=== PATIENT | female | born 1945 | race Asian ===

== ENCOUNTER 2017-06-11 13:49 | Outpatient (CLI) | payer MEDICARE ==
--- NOTE | 2017-06-11 15:37 | Mammography Report ---
BILATERAL MAMMOGRAM: FINDINGS: The breast tissue is heterogeneously dense, which could obscure detection of small masses (approximately 50%-75% glandular). No mass, distortion, suspicious calcification, or skin change is seen. There is no significant change when compared to prior exam in February 2016. CAD was utilized. IMPRESSION: Negative mammogram. There is no mammographic evidence of malignancy. RECOMMENDATION: Follow-up per ACS guidelines. BI-RADS CATEGORY: 1 = Negative ACR BI-RADS MAMMOGRAPHIC CODES: 0 = Needs additional imaging evaluation; 1 = Negative; 2 = Benign; 3 = Probably benign; 4 = Suspicious; 5 = Malignant; 6 = Known biopsy-proven malignancy COMMENT: 1. Dense breast tissue, i.e., adenosis, fibrocystic changes, etc., may obscure an underlying neoplasm. 2. Approximately 10% of cancers are not detected with mammography. 3. A negative mammography report should not delay biopsy if a clinically suspicious mass is present. COMMENT: Patient follow-up letters are generated in [employer].
--- NOTE | 2017-06-11 16:24 | Mammography Report ---
BONE DENSITY STUDY: Postmenopausal osteoporosis DEFINITIONS: BMD = Bone Mineral Density T-score = BMD related to mean peak bone mass of young adult (mean expressed in Standard Deviation) Z-score = Age matched BMD expressed in SD World Health Organization (WHO) Diagnostic Criteria Normal T-score > -1 SD Osteopenia T-score between -1 and -2.4 SD Osteoporosis T-score -2.5 SD or below FINDINGS: The weighted average BMD of lumbar spine L1-L4 is 0.947 with a T-score of -1.8. The weighted average BMD of the left hip is 0.868 with a T-score of -1.0. The femoral neck BMD is 0.675 with a T. value score of -1.9. IMPRESSION: The patient's average T-score is diagnostic for osteopenia and average relative risk for fracture. NOTE: BMD is not the only risk factor for fracture; also consider factors such as the patient's age, risk of falling, previous osteoporotic fracture, family history of osteoporotic fractures, current smoker, and low body weight. Tellez's triangle is a region of interest in femur, predominantly of trabecular bone. It is not a true anatomic site, and [facility] does not recommend its use clinically.
== END 2017-06-11 13:50 | disposition home or self-care (01) ==
LOC: SPVWC 13:49
PROVIDERS: ATTEND Family Medicine
DX: Z12.31 Encounter for screening mammogram for malignant neoplasm of breast (principal); M85.88 Other specified disorders of bone density and structure, other site; Z78.0 Asymptomatic menopausal state
CPT/HCPCS: 77080; G0202; 77067

== ENCOUNTER 2019-07-26 09:22 | Outpatient (CLI) | payer MEDICARE ==
--- NOTE | 2019-07-27 09:54 | Mammography Report ---
DIGITAL SCREENING MAMMOGRAM WITH CAD, 07/26/2019 INDICATION: Routine screening mammography. TECHNIQUE: Digital bilateral 2D mammography was obtained in the craniocaudal and mediolateral obliq ue projections. This examination was interpreted with the benefit of Computer-Aided Detection analysi s. COMPARISON: 03/05/2016 FINDINGS: Breast Density: There are scattered areas of fibroglandular density. There is no evidence of dominant mass, suspicious calcifications or architectural distortion in eithe r breast. Bilateral benign vascular calcifications. IMPRESSION: No mammographic evidence of malignancy. Follow up recommendation: Routine yearly BI-RADS Category 2: Benign. A "normal" or negative report should not discourage follow up or biopsy of a clinically significant f inding. A written summary of these findings will be mailed to the patient. The patient will be entered into a mammography reporting system which will generate a reminder letter for the patient's next appointmen t at the appropriate interval. The [employer] recommends yearly mammograms starting at age 40 and continuing as l tahmina as a woman is in good health. Breast MRI is recommended for women with an approximate 20-25% or greater lifetime risk of breast cancer, including women with a strong family history of breast or ova rosalinda cancer or who have been treated for Hodgkin's disease. Signer Name: Agustin Monae MD Signed: 07/27/2019 9:49 AM Workstation Name: [id number]
--- NOTE | 2019-07-27 09:58 | Mammography Report ---
BONE DEXA CLINICAL: Postmenopausal. COMPARISON: 06/11/2017 TECHNIQUE: 3 site bone DEXA performed on an Hologic scanner. FINDINGS: The average BMD of the lumbar spine L1-L3 is 0.938g/cm squared with a T score of -1.6 and a Z score o f +0.8. This compares to 0.890g/cm squared on the last exam and represents a +5.4 % change from the [ previous baseline]. The L4 vertebral body was excluded as an outlier The average BMD of the left hip is 0.894 g/cm squared with a T score of -0.9and a Z score of +0.3. Th is compares to 0.868 g/cm squared on the last exam and represents a +2.9 % change from the [previous baseline]. The left femoral neck BMD is 0.659 g/cm squared with a T score of -2.1 and a Z score of -0.5. IMPRESSION: 1. WHO classification: Osteopenia with increased fracture risk based on spine left femoral neck measu rements. 2. WHO classification Normal with average fracture risk based on total left hip measurements. 3. Moderate improvement in both spine and total left hip BMD compared to the previous baseline. RECOMMENDATION: Clinical correlation and routine screening. Definitions: BMD equal bone mineral density T score = BMD related to peak bone mass of young adult ([place] expressed an standard deviation) Z score = age-matched BMD expressed in SD World health organization (WHO) diagnostic criteria Normal T score greater than equal to 1 standard deviation Osteopenia T score between -1 and -2.4 standard deviation Osteoporosis T score -2.5 standard deviation or below. Note: BMD is not the only risk factor for fracture; also consider factors such as the patient's age, risk of falling, previous osteoporotic fracture, family history of osteoporotic fractures, current sm oker and low body weight. Z scores are not calculated if greater than 80 years of age. Signer Name: Agustin Monae MD Signed: 07/27/2019 9:53 AM Workstation Name: [id number]
== END 2019-07-26 09:23 | disposition home or self-care (01) ==
LOC: SPVWC 09:22
PROVIDERS: ATTEND Family Medicine
DX: Z12.39 Encounter for other screening for malignant neoplasm of breast (principal); Z78.0 Asymptomatic menopausal state
CPT/HCPCS: 77067; 77080

== ENCOUNTER 2021-08-17 10:45 | Outpatient (CLI) | payer MEDICARE, BC | END 2021-08-17 10:46 | disposition home or self-care (01) | LOC: SPVWC 10:45 | PROVIDERS: ATTEND Family Medicine | DX: Z12.31 Encounter for screening mammogram for malignant neoplasm of breast (principal) | CPT/HCPCS: 77067 ==